=== PATIENT | female | born 1950 | race Caucasian/White ===

== ENCOUNTER 2021-04-25 13:13 | Observation (INO) ==
[2021-04-25] MEDS ORDERED: NS 0.9% 1000 ml BAG 1,000 ML IV ONE (13:44)
[2021-04-25 15:01] LABS: ABS Eosinophils 0.3 10^3/ul (0-0.6); ABS Lymphocytes 1.4 10^3/ul (1.0-4.8); ABS Monocytes 0.3 10^3/ul (0-0.8); ABS Neutrophils 2.3 10^3/ul (1.5-7.7); Hematocrit 38 % (35-47); Hemoglobin 12.9 g/dL (12.0-16.0); Lymphocyte % 32.5 %; Mean Corpuscular HGB Conc 34 g/dL (31-36); Mean Corpuscular Hemoglobin 31 pg (27-31); Mean Corpuscular Volume 92 fL (80-97); Mean Platelet Volume 8.3 fL (7.4-10.4); Platelet Count 219 10^3/uL (150-450); Red Blood Count 4.16 10^6 /uL (3.70-4.87); Red Cell Distribution Width 13 % (10-15); White Blood Count 4.2 10^3/uL (3.5-10.8)
[2021-04-25 15:20] LABS: Albumin 3.8 g/dL (3.2-5.2); Calcium 9.4 mg/dL (8.6-10.3); Magnesium 2.3 mg/dL (1.9-2.7); Potassium 4.2 mmol/L (3.5-5.0); Total Bilirubin 0.4 mg/dL (0.2-1.0)
[2021-04-25 15:26] LABS: Albumin/Globulin Ratio 1.4 (1-3); Globulin 2.7 g/dL (2-4); Total Protein 6.5 g/dL (6.4-8.9)
[2021-04-25] MEDS ORDERED: Iohexol 300 (CONTRAST) 10 ML SDV IV ONE (15:30)
[2021-04-25] MEDS ORDERED: Iohexol 350 (CONTRAST) 500 ML MDV IV ONE (15:34)
[2021-04-25 15:59] LABS: Rapid COVID-19 Molecular Undetected (Undetected)
[2021-04-25 16:10] LABS: Troponin I 0.01 ng/mL (<0.03)
[2021-04-25 16:49] LABS: Urine Appearance Clear; Urine Bilirubin Negative (Negative); Urine Blood Negative (Negative); Urine Color Straw; Urine Glucose Negative (Negative); Urine Ketones Negative (Negative); Urine Nitrite Negative (Negative); Urine Protein Negative (Negative); Urine Specific Gravity 1.019 (1.002-1.030); Urine Urobilinogen Negative (Negative)
[2021-04-25 18:40] LABS: TSH Ultra Thyroid Stim Horm 0.89 mcIU/mL (0.34-5.60)
[2021-04-25 18:51] LABS: Folate 18.87 ng/mL (5.90-24.80)
[2021-04-25] MEDS ORDERED: LORazepam 2 mg VIAL 1 ml IV PUSH ONE (20:06)
[2021-04-25] MEDS ORDERED: Lorazepam PYXIS KEY PRN (20:06)
[2021-04-25] MEDS ORDERED: LORazepam 2 mg VIAL 1 ml ONE (20:07)
[2021-04-25 20:22] LABS: Rapid COVID-19 Molecular Undetected (Undetected)
[2021-04-26] MEDS: Ondansetron ODT 4 mg TAB 4 MG TAB SL ONE ×2 (22:30→22:31)
[2021-04-27] MEDS ORDERED: Lorazepam PYXIS KEY PRN (11:43)
[2021-04-27] MEDS ORDERED: LORazepam 2 mg VIAL 1 ml IM PRN (11:43)
[2021-04-27 12:03] VITALS: BP 112/63
== END 2021-04-27 13:15 ==
LOC: SSU 13:13 → ED 13:13 → SUATTDRO 21:19 → SSU 22:11
PROVIDERS: ADMIT Internal Medicine; ATTEND Internal Medicine